=== PATIENT | male | born 1955 | race Hispanic/Latino ===

== ENCOUNTER 2017-04-16 07:44 | Emergency (ER) | payer OTHER, SELFPAY ==
[2017-04-16] MEDS ORDERED: Cephalexin 250 MG CAP ONE ×2 (08:05→08:07)
[2017-04-16] MEDS ORDERED: Adacel (T-DAP) 0.5 ML VIAL ONE (08:12)
== END 2017-04-16 08:26 | disposition home or self-care (01) ==
LOC: BURERS 07:44
DX: S90.852A Superficial foreign body, left foot, initial encounter (principal); W45.8XXA Other foreign body or object entering through skin, initial encounter
CPT/HCPCS: 28190; 90471; 90715

== ENCOUNTER 2018-03-19 08:41 | Emergency (ER) | payer OTHER, SELFPAY | END 2018-03-19 10:25 | disposition home or self-care (01) | LOC: BURERS 08:41 | DX: I87.2 Venous insufficiency (chronic) (peripheral) (principal) | CPT/HCPCS: 99283 ==

== ENCOUNTER 2019-11-08 12:41 | Emergency (ER) | payer SELFPAY ==
[2019-11-08] MEDS ORDERED: Lidocaine 1% PF 5 ML VIAL ONE ×2 (14:06→14:20)
[2019-11-08] MEDS ORDERED: Amoxicillin/Potassium Clav 875 MG TAB ONE (15:05)
== END 2019-11-08 15:10 | disposition home or self-care (01) ==
LOC: BURERS 12:41
DX: S01.351A Open bite of right ear, initial encounter (principal); S50.811A Abrasion of right forearm, initial encounter; W54.0XXA Bitten by dog, initial encounter
CPT/HCPCS: 12013; J2001

== ENCOUNTER 2022-02-27 11:22 | Emergency (ER) | payer OTHER, SELFPAY ==
[2022-02-27 11:55] LABS: #Basophils 0.1 thou/uL (0.0-0.2); #Eosinphils 0.1 thou/uL (0.0-0.7); #Lymphocytes 2.9 thou/uL (1.20-3.40); #Monocytes 0.7 thou/uL (0.11-0.59); #Neutrophils 5.2 thou/uL (1.40-6.50); %Basophils 1.2 % (0.0-1.0); %Eosinophils 1.6 % (0.0-10.0); %Lymphocytes 32.3 % (21.0-51.0); %Monocytes 7.4 % (0.0-10.0); %Neutrophils 57.6 % (42.0-75.0); Hemoglobin 15.4 g/dL (14.0-18.0); Mean Corpuscular HGB CONC 32.8 g/dL (32.0-36.0); Mean Corpuscular Hemoglobin 31.2 pg (27.0-31.0); Mean Corpuscular Volume 95.1 fL (78.0-98.0); Mean Platelet Volume 6.9 fL (7.4-10.4); Platelet Count 156 thou/uL (130-400); RBC Distribution Width 12.9 % (11.5-14.5); Red Blood Cell (RBC) Count 4.92 mill/uL (4.70-6.10); White Blood Cell (WBC) Count 9.1 thou/uL (4.8-10.8)
[2022-02-27 12:11] LABS: ALT (SGPT) 22 U/L (8-55); AST (SGOT) 34 U/L (5-34); Albumin 3.8 g/dL (3.4-4.8); Alkaline Phosphatase 102 U/L (40-110); Anion Gap 13 mmol/L (10-20); BUN (Urea Nitrogen) 11 mg/dL (8.4-25.7); Bilirubin, Total 0.9 mg/dL (0.2-1.2); Calc. Creatinine Clearance 0 mL/min (70-130); Calcium 9.1 mg/dL (7.8-10.44); Carbon Dioxide 25 mmol/L (23-31); Chloride 101 mmol/L (98-107); Estimated GFR 101; Globulin 3.6 g/dL (2.4-3.5); Glucose 117 mg/dL (80-115); Potassium 3.9 mmol/L (3.5-5.1); Protein, Total 7.4 g/dL (5.8-8.1); Sodium 135 mmol/L (136-145)
== END 2022-02-27 12:41 | disposition home or self-care (01) ==
LOC: BURERS 11:22
DX: B34.9 Viral infection, unspecified (principal); R73.9 Hyperglycemia, unspecified; Z20.822 Contact with and (suspected) exposure to COVID-19
CPT/HCPCS: 71046; 80053; 85025; U0003; U0005

== ENCOUNTER 2023-01-31 18:41 | Emergency (ER) | payer OTHER | END 2023-01-31 19:09 | disposition home or self-care (01) | LOC: BURERS 18:41 | DX: R19.7 Diarrhea, unspecified (principal); I50.9 Heart failure, unspecified | CPT/HCPCS: 99283 ==

== ENCOUNTER 2023-05-13 19:02 | Emergency (ER) | payer OTHER ==
[2023-05-13] MEDS ORDERED: methylPREDNISolone Sod Succ/PF 125 MG/2 ML VIAL ONE (19:32)
== END 2023-05-13 19:57 | disposition home or self-care (01) ==
LOC: BURERS 19:02
DX: R22.0 Localized swelling, mass and lump, head (principal); I11.0 Hypertensive heart disease with heart failure; I50.9 Heart failure, unspecified
CPT/HCPCS: 96372; 99282; J2930